=== PATIENT | male | born 1995 | race African-American/Black ===

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

== ENCOUNTER 2018-02-22 16:48 | Emergency (ER) | payer OTHER ==
[~2018-02-22] VITALS: Ht 185.4 cm; Wt 63.6 kg
[2018-02-22] MEDS ORDERED: BENZOCAINE/MENTHOL LOZENGE PO ONE (18:45)
[2018-02-22 19:30] VITALS: BP 116/69
== END 2018-02-22 20:26 | disposition home or self-care (01) ==
LOC: EMS 16:49
DX: J06.9 Acute upper respiratory infection, unspecified (principal); R07.89 Other chest pain; Z91.018 Allergy to other foods
CPT/HCPCS: 87430; 99283